=== PATIENT | female | born 1940 | race Caucasian/White ===

== ENCOUNTER 2022-06-18 18:26 | Inpatient (IN) ==
[2022-06-18] MEDS ORDERED: cefTRIAXone 1 gm/50 mL D5W 1 GM/50 ML BAG IV ONE (20:01)
[2022-06-18] MEDS ORDERED: NS 0.9% 1000 ml BAG 1,000 ML IV ONE (20:01)
[2022-06-18 20:11] LABS: Hematocrit 30 % (35-47); Mean Corpuscular HGB Conc 33 g/dL (31-36); Mean Corpuscular Hemoglobin 28 pg (27-31); Mean Corpuscular Volume 86 fL (80-97); Mean Platelet Volume 7.2 fL (7.4-10.4); Platelet Count 290 10^3/uL (150-450); Red Cell Distribution Width 16 % (10-15); White Blood Count 13.4 10^3/uL (3.5-10.8)
[2022-06-18 20:29] LABS: Anion Gap 5 mmol/L (2-11); Blood Urea Nitrogen 21 mg/dL (6-24); CO2 Carbon Dioxide 23 mmol/L (22-32); Chloride 98 mmol/L (101-111); Creatinine, Serum 0.69 mg/dL (0.51-0.95); Glucose 243 mg/dL (70-100); Potassium 4.2 mmol/L (3.5-5.0); Sodium 126 mmol/L (135-145); eGFR CKD-EPI 86.6 (>60)
[2022-06-18 20:30] LABS: ALT 26 U/L (7-52); AST 18 U/L (13-39); Albumin 2.3 g/dL (3.2-5.2); Albumin/Globulin Ratio 0.8 (1-3); Alkaline Phosphatase 113 U/L (35-149); C Reactive Protein 89.14 mg/L (<8.01); Globulin 2.8 g/dL (2-4); Total Protein 5.1 g/dL (6.4-8.9)
[2022-06-18 20:34] LABS: High Sens Troponin Baseline 44 pg/mL (<15)
[2022-06-18 20:39] LABS: ABS Lymphocytes 0.9 10^3/ul (1.0-4.8); ABS Monocytes 0.5 10^3/ul (0-0.8)
[2022-06-18 21:50] LABS: High Sensitivity Troponin 1 Hr 35 pg/mL (<15)
[2022-06-18] MEDS ORDERED: Azithromycin 500 mg/250 ml NS 500 MG/250 ML BAG IVPB ONE (21:58)
[2022-06-19 01:24] LABS: Urine Appearance Cloudy; Urine Bilirubin Negative (Negative); Urine Blood Negative (Negative); Urine Color Yellow; Urine Glucose 3+(>=500 mg/dL) (Negative); Urine Ketones 1+ (Negative); Urine Nitrite Negative (Negative); Urine Protein 2+(100 mg/dL) (Negative); Urine Specific Gravity 1.027 (1.002-1.030); Urine Urobilinogen Negative (Negative)
[2022-06-19 01:33] LABS: Urine Bacteria Absent (Absent); Urine Granular Casts Present (Absent); Urine Red Blood Cell 2+(6-10/hpf) (Absent); Urine Squamous Epithelial Cell Present (Absent); Urine White Blood Cell 3+(>20/hpf) (Absent)
[2022-06-19 01:40] LABS: Urine Osmo 843 mOsm/kg (150-1150)
[2022-06-19] MEDS ORDERED: Dextrose 50% Syringe 50 ml 25 GM/50 ML SYRINGE IV PUSH PRN (03:55)
[2022-06-19 04:09] LABS: % Iron Saturation 11 % (15-55); .Transferrin 129 mg/dL (203-362); Iron < 20 ug/dL (50-212); Total Iron Binding Capacity 181 mcg/dL (250-450); Unsaturated Iron Binding 161 ug/dL
[2022-06-19] MEDS ORDERED: Calcium Carb (TUMS) 500 mg CHEW TAB PO SCH (09:00)
[2022-06-19] MEDS ORDERED: Insulin NPH 100 units/ml SUBCUT SCH (09:00)
[2022-06-19] MEDS ORDERED: Ferric Gluconate IV 250 MG in NS 0.9% 250 ml 200 ML IVPB SCH (09:00)
[2022-06-19] MEDS ORDERED: AZITHROMYCIN 500 MG TAB PO SCH (10:00)
[2022-06-19 10:21] LABS: ABS Basophils 0.1 10^3/ul (0-0.2); ABS Monocytes 0.5 10^3/ul (0-0.8); ABS Neutrophils 11.7 10^3/ul (1.5-7.7); Hematocrit 30 % (35-47); Hemoglobin 9.8 g/dL (12.0-16.0); Lymphocyte % 7.6 %; Mean Corpuscular HGB Conc 33 g/dL (31-36); Mean Corpuscular Hemoglobin 28 pg (27-31); Mean Corpuscular Volume 86 fL (80-97); Mean Platelet Volume 7.1 fL (7.4-10.4); Nucleated Red Blood Cells % 0.1; Platelet Count 287 10^3/uL (150-450); Red Blood Count 3.48 10^6 /uL (3.70-4.87); Red Cell Distribution Width 16 % (10-15); White Blood Count 13.3 10^3/uL (3.5-10.8)
[2022-06-19 11:02] LABS: Calcium 7.2 mg/dL (8.6-10.3); Creatinine, Serum 0.69 mg/dL (0.51-0.95); Potassium 4.1 mmol/L (3.5-5.0); eGFR CKD-EPI 86.6 (>60)
[2022-06-19] MEDS ORDERED: Lactated Ringers 1000 ml BAG 1,000 ML IV ONE (12:47)
[2022-06-19] MEDS ORDERED: Piperacillin/Tazobac ADVAN 3.375 GM in NS 0.9% 100 ml BAG 100 ML IV ONE (18:38)
[2022-06-19] MEDS ORDERED: NS 0.9% 1000 ml BAG 1,000 ML IV ONE (18:38)
[2022-06-19] MEDS ORDERED: Vancomycin 1,000 MG in NS 0.9% 250 ml 250 ML IVPB ONE (18:43)
[2022-06-19] MEDS ORDERED: Vancomycin per Pharmacy 1 EA NOTE FOLLOW UP SCH (19:00)
[2022-06-19] MEDS ORDERED: Zosyn per Pharmacy NOTE FOLLOW UP SCH (19:00)
[2022-06-19 19:03] LABS: ABS Lymphocytes 1.2 10^3/ul (1.0-4.8); ABS Monocytes 0.5 10^3/ul (0-0.8); ABS Neutrophils 12.2 10^3/ul (1.5-7.7); Eosinophil % 0.1 %; Hematocrit 30 % (35-47); Hemoglobin 9.8 g/dL (12.0-16.0); Lymphocyte % 8.3 %; Mean Corpuscular HGB Conc 33 g/dL (31-36); Mean Corpuscular Hemoglobin 29 pg (27-31); Mean Corpuscular Volume 87 fL (80-97); Mean Platelet Volume 7.4 fL (7.4-10.4); Nucleated Red Blood Cells % 0.1; Platelet Count 284 10^3/uL (150-450); Red Blood Count 3.44 10^6 /uL (3.70-4.87); Red Cell Distribution Width 15 % (10-15)
[2022-06-19 19:35] LABS: Albumin 2.2 g/dL (3.2-5.2); Albumin/Globulin Ratio 0.8 (1-3); Calcium 7.3 mg/dL (8.6-10.3); Creatinine, Serum 0.71 mg/dL (0.51-0.95); Globulin 2.6 g/dL (2-4); Potassium 4.4 mmol/L (3.5-5.0); Total Bilirubin 0.3 mg/dL (0.2-1.0); Total Protein 4.8 g/dL (6.4-8.9); eGFR CKD-EPI 84.8 (>60)
[2022-06-19] MEDS ORDERED: cefTRIAXone 1 gm/50 mL D5W 1 GM/50 ML BAG IV SCH (20:00)
[2022-06-19] MEDS: ZOSYN 3.375 GM Q8H per EXTENDED INFUSION IV SCH (23:48)
[2022-06-20 00:36] LABS: Calcium 7.2 mg/dL (8.6-10.3); Potassium 4.5 mmol/L (3.5-5.0)
[2022-06-20 00:42] LABS: Creatinine, Serum 0.7 mg/dL (0.51-0.95); eGFR CKD-EPI 86.3 (>60)
[2022-06-20] MEDS: NS 0.9% 1000 ml BAG 1,000 ML IV SCH ×2 (02:30→12:51)
[2022-06-20 03:49] LABS: Magnesium 1.9 mg/dL (1.9-2.7)
[2022-06-20 07:00] LABS: Hematocrit 30 % (35-47); Mean Corpuscular HGB Conc 33 g/dL (31-36); Mean Corpuscular Hemoglobin 29 pg (27-31); Mean Corpuscular Volume 88 fL (80-97); Mean Platelet Volume 8.4 fL (7.4-10.4); Platelet Count 259 10^3/uL (150-450); Red Blood Count 3.42 10^6 /uL (3.70-4.87); Red Cell Distribution Width 15 % (10-15); White Blood Count 12.7 10^3/uL (3.5-10.8)
[2022-06-20 07:18] LABS: Calcium 7.1 mg/dL (8.6-10.3); Magnesium 1.8 mg/dL (1.9-2.7); Potassium 4.2 mmol/L (3.5-5.0)
[2022-06-20 07:24] LABS: Creatinine, Serum 0.72 mg/dL (0.51-0.95); eGFR CKD-EPI 83.4 (>60)
[2022-06-20] MEDS ORDERED: Vancomycin 750 MG in NS 0.9% 250 ML IVPB SCH (08:00)
[2022-06-20 08:08] LABS: Anisocytosis 1+; Polychromasia 1+
[2022-06-20 08:09] LABS: ABS Basophils 0.1 10^3/ul (0-0.2); ABS Monocytes 0.4 10^3/ul (0-0.8); Eosinophil % 0.1 %; Lymphocyte % 8.3 %
[2022-06-20] MEDS ORDERED: Insulin NPH 100 units/ml SUBCUT SCH (09:00)
[2022-06-20] MEDS: Calcium/Vitamin D TAB 250/125 TAB PO SCH (09:32)
[2022-06-20] MEDS: ZOSYN 3.375 GM Q8H per EXTENDED INFUSION IV SCH ×3 (09:38→23:54)
[2022-06-20] MEDS: Polyethylene Glycol 3350 17 GM PACKET PO SCH ×2 (09:43→09:44)
[2022-06-20] MEDS ORDERED: Magnesium Sulfate 2 gm BAG 2 GM/50 ML BAG IVPB ONE (14:22)
[2022-06-20] MEDS ORDERED: Insulin GLARGINE 100 un/ml 10 ml VIAL SUBCUT SCH (21:00)
[2022-06-21] MEDS ORDERED: Vancomycin Trough Check NOTE FOLLOW UP ONE (07:30)
[2022-06-21 07:39] LABS: ABS Lymphocytes 1.7 10^3/ul (1.0-4.8); ABS Monocytes 0.6 10^3/ul (0-0.8); ABS Neutrophils 11.5 10^3/ul (1.5-7.7); Eosinophil % 0.2 %; Hematocrit 30 % (35-47); Lymphocyte % 12.2 %; Mean Corpuscular HGB Conc 33 g/dL (31-36); Mean Corpuscular Hemoglobin 29 pg (27-31); Mean Corpuscular Volume 87 fL (80-97); Mean Platelet Volume 7.9 fL (7.4-10.4); Platelet Count 327 10^3/uL (150-450); Red Blood Count 3.49 10^6 /uL (3.70-4.87); Red Cell Distribution Width 16 % (10-15); White Blood Count 13.9 10^3/uL (3.5-10.8)
[2022-06-21 07:59] LABS: Calcium 6.9 mg/dL (8.6-10.3); Creatinine, Serum 0.6 mg/dL (0.51-0.95); Potassium 3.9 mmol/L (3.5-5.0); eGFR CKD-EPI 89.6 (>60)
[2022-06-21] MEDS: ZOSYN 3.375 GM Q8H per EXTENDED INFUSION IV SCH (08:07)
[2022-06-21] MEDS: Calcium/Vitamin D TAB 250/125 TAB PO SCH (08:10)
[2022-06-21] MEDS: Polyethylene Glycol 3350 17 GM PACKET PO SCH (08:13)
[2022-06-21] MEDS ORDERED: Albuterol/Ipratropium NEB.SOL (2.5/0.5 MG) 3 ML NEB.SOLN INH ONE (08:59)
[2022-06-21] MEDS ORDERED: Insulin GLARGINE 100 un/ml 10 ml VIAL SUBCUT SCH (21:00)
[2022-06-22 06:05] VITALS: BP 123/52
[2022-06-22 07:25] LABS: Calcium 7.3 mg/dL (8.6-10.3); Creatinine, Serum 0.59 mg/dL (0.51-0.95); Magnesium 2.1 mg/dL (1.9-2.7); Potassium 3.9 mmol/L (3.5-5.0); eGFR CKD-EPI 89.9 (>60)
[2022-06-22 07:29] LABS: ABS Eosinophils 0.1 10^3/ul (0-0.6); ABS Lymphocytes 3.3 10^3/ul (1.0-4.8); ABS Monocytes 0.6 10^3/ul (0-0.8); ABS Neutrophils 8.1 10^3/ul (1.5-7.7); Eosinophil % 0.5 %; Hematocrit 31 % (35-47); Hemoglobin 10.4 g/dL (12.0-16.0); Lymphocyte % 27.2 %; Mean Corpuscular HGB Conc 33 g/dL (31-36); Mean Corpuscular Hemoglobin 29 pg (27-31); Mean Corpuscular Volume 86 fL (80-97); Mean Platelet Volume 7.8 fL (7.4-10.4); Nucleated Red Blood Cells % 0.1; Platelet Count 352 10^3/uL (150-450); Red Blood Count 3.62 10^6 /uL (3.70-4.87); Red Cell Distribution Width 16 % (10-15)
[2022-06-22] MEDS: Polyethylene Glycol 3350 17 GM PACKET PO SCH ×2 (07:44→07:45)
[2022-06-22] MEDS ORDERED: Calcium/Vitamin D TAB 250/125 TAB PO SCH (15:00)
[2022-06-22 17:47] LABS: Anaplasma phagocytophilum Positive (Negative); B. miyamotoi PCR, B Negative (Negative); Babesia divergens/MO-1 Negative (Negative); Babesia ducani Negative (Negative); Ehrlichia chaffeensis Negative (Negative); Ehrlichia ewingii/canis Negative (Negative); Ehrlichia muris eauclairensis Negative (Negative)
== END 2022-06-22 13:00 | disposition home or self-care (01) | DRG 194 ==
LOC: EDHOLD 18:26 → ED 18:26 → SUATTDRO 06-19 00:21 → EDHOLD 06-19 14:07 → MEDTELE 06-19 14:37
PROVIDERS: ADMIT Student in an Organized Health Care Education/Training Program; ATTEND Internal Medicine